=== PATIENT | female | born 1970 | race Caucasian/White ===

== ENCOUNTER 2022-03-24 08:30 | Observation (INO) | payer OTHER, SELFPAY ==
[2022-03-24] VITALS (11 sets, daily range): BP systolic 97–177; BP diastolic 48–90; PULSE 64–77; RESP 14–21; TEMP 36.7–37.1; O2SAT 98–100; BMI 34.8
--- NOTE | 2022-03-24 | ECHO_ITS ---
Patient Info Name: Lisseth Yuonger Age: 51 years : 1970 Gender: Female Ht: 64 in Wt: 215 lbs BSA: 2.14 m2 BP: 144 / 86 mmHg Technical Quality: Good Exam Date: 03/24/2022 2:00 PM Exam Location: [facility] Pulmonary Patient Status: Outpatient Admit Date: 03/24/2022 Staff Ordering Physician: Carl Quinteros DO Track Welder: Allan Wright RDCS, RT Attending Provider: Nicole Barfield MD Referring Physician: Aldair CRAIN; Exam Type: CA echo doppler color flow Study Info Indications R07.9 - Chest pain, unspecified Complete two-dimensional, color flow and Doppler transthoracic echocardiogram is performed. Strain analysis performed. Summary 1. Complete two-dimensional, color flow and Doppler transthoracic echocardiogram is performed. 2. Left ventricular chamber dimension is normal. 3. Left ventricular systolic function is normal, estimated at 60-65%. 4. There is mildly increased left ventricular wall thickness. 5. The left ventricular diastolic function is abnormal. 6. E/e' 10 is mildly elevated. 7. There is trace mitral valve regurgitation. 8. There is trace tricuspid valve regurgitation. 9. No pulmonary hypertension, estimated pulmonary arterial systolic pressure is 20 mmHg. Left Ventricle E/e' 10 is mildly elevated. Left ventricular chamber dimension is normal. Left ventricular systolic function is normal, estimated at 60-65%. There is mildly increased left ventricular wall thickness. The left ventricular diastolic function is abnormal. Right Ventricle Right ventricular systolic function is normal and with normal TAPSE 2.1 cm. Right ventricular chamber dimension is normal. Left Atria Left atrial chamber dimension is normal. Right Atria Right atrial chamber dimension is normal. Aortic Valve The aortic valve is trileaflet. There is no aortic valve stenosis. There is no aortic valve regurgitation. Pulmonic Valve There is no pulmonic regurgitation. Mitral Valve There is no mitral valve stenosis. There is trace mitral valve regurgitation. Tricuspid Valve There is trace tricuspid valve regurgitation. No pulmonary hypertension, estimated pulmonary arterial systolic pressure is 20 mmHg. Pericardium/Pleural There is no pericardial effusion. Inferior Vena Cava Normal inferior vena cava with >50% collapse upon inspiration consistent with normal right atrial pressure, 5 mmHg. Aorta The aortic root size at the sinus of Valsalva is normal. Left Ventricular Outflow Tract Name Value Normal LVOT 2D LVOT Diameter 2.0 cm LVOT Doppler LVOT Peak Gradient 2 mmHg LVOT Mean Gradient 1 mmHg LVOT VTI 16 cm LVOT VTI/AV VTI Ratio 0.8 LVOT Stroke Volume 51 ml LVOT CO 3.4 l/min LVOT CI 1.6 l/min/m2 Mitral Valve Name Value Normal
--- NOTE | ~2022-03-24 | XR_ITS ---
EXAMINATION: XR chest 2V DATE: 03/24/2022 08:57 INDICATION: Chest tightness TECHNIQUE: PA and lateral views of the chest are obtained. COMPARISON: None available FINDINGS: The lungs are free of acute opacities. There is no pleural effusion or pneumothorax. The ca rdiomediastinal silhouette is normal. There is mild thoracic spondylosis. Surgical clips in the right upper quadrant are likely from prior cholecystectomy. IMPRESSION: 1. No acute cardiopulmonary abnormality. Reviewed, dictated and finalized at location A.
--- NOTE | ~2022-03-24 | MR_ITS ---
EXAMINATION: MR brain/brain stem wo con DATE: 03/25/2022 10:11 INDICATION: Slurred speech and confusion TECHNIQUE: Magnetic resonance imaging (MRI) of the brain and brainstem was performed without intraven ous contrast. Sequences included sagittal and axial T1-weighted SE, axial diffusion-weighted FS SE, a xial T2*-weighted GRE, axial T2-weighted FLAIR, and axial T2-weighted FSE. Apparent diffusion coeffic ient (ADC) maps were created. COMPARISON: None. FINDINGS: There are no areas of restricted diffusion to suggest acute infarction. No intracranial hemorrhage or abnormal intracranial mass lesion. There are no intraparenchymal signal abnormalities seen on the ot her pulse sequences. The ventricles are symmetric and normal in size. There are no abnormal extra-axi al fluid collections. Flow voids are seen in the cerebral arteries on the T2-weighted sequences consi stent with their expected patency. Left vertebral artery is dominant. Changes of bilateral intraocula r lens replacement. Mild mucosal thickening in the bilateral ethmoid and maxillary sinuses. IMPRESSION: 1. Normal brain. No acute intracranial process. Reviewed, dictated and finalized at location A.
--- NOTE | ~2022-03-24 | NM_ITS ---
EXAMINATION: NM segundo stress w perfusion DATE: 03/25/2022 11:58 INDICATION: Chest pain TECHNIQUE: Rest images were obtained following intravenous administration of 10 mCi Tc99m tetrofosmin (Myoview). The patient was infused intravenously with Lexiscan (Regadenoson). Then, 32.3 mCi Tc99m t etrofosmin (Myoview) was administered intravenously, and stress images were obtained. Data was recons tructed into short axis and horizontal and vertical long axis SPECT images. Gated SPECT images were a lso obtained. COMPARISON: None. FINDINGS: Small mild reversible perfusion defect at the anteroapical segment and small anterior porti on of the immediately adjacent anterior septal segment consistent with ischemia. No nonreversible inf arct. There is normal left ventricular chamber size, wall motion and ejection fraction. Left ventri cular ejection fraction measures >70%. IMPRESSION: 1. Small region of mild reversible ischemia at the anteroapical portion of the immediately adjacent a pical septal segments. 2. Left ventricular ejection fraction measuring >70%. Reviewed, dictated and finalized at location A. IMPRESSION: 1. Small region of mild reversible ischemia at the anteroapical portion of the immediately adjacent apical septal segments. 2. Left ventricular ejection fraction measuring >70%.
--- NOTE | ~2022-03-24 | US_ITS ---
EXAMINATION: US carotid duplex BI DATE: 03/25/2022 09:58 INDICATION: Slurred speech and confusion. TECHNIQUE: Grayscale, color Doppler, and pulsed Doppler images of the cervical carotid arteries were obtained. The degree of vessel stenosis is placed in one of the following categories: normal, <50%, 5 0-69%, >=70% but less than near-occlusion, near-occlusion, or total occlusion. Note that percent sten osis relative to normal distal artery lumen diameter is indirectly measured from velocity measurement s as described by Abhilash, et al. Radiology 2003; 229:340-346. COMPARISON: None. FINDINGS: RIGHT: The right common carotid artery (CCA) peak systolic velocity (PSV) is 70 cm/s. The right internal car otid artery (ICA) PSV is 126 cm/s. The right ICA end-diastolic velocity (EDV) is 43 cm/s. The right I CA/CCA PSV ratio is 1.8. Grayscale and color Doppler images utilizing secondary Doppler criteria yiel d an estimate of <50% diameter reduction from plaque in the ICA. The external carotid artery (ECA) PS V is 130 cm/s. There is antegrade flow in the right vertebral artery. LEFT: The left CCA PSV is 90 cm/s. The left ICA PSV is 131 cm/s. The left ICA EDV is 36 cm/s. The left ICA/ CCA PSV ratio is 1.4. Grayscale and color Doppler images including secondary Doppler criteria yield a n estimate of <50% diameter reduction from plaque in the ICA. The ECA PSV is 105 cm/s. There is anteg rade flow in the left vertebral artery. IMPRESSION: 1. <50% stenosis in the right internal carotid artery. 2. <50% stenosis in the left internal carotid artery. Reviewed, dictated and finalized at location A.
--- NOTE | 2022-03-24 08:38 | ECG_ITS ---
Measurements Intervals [place] Rate: 75 P: 8 CT: 171 QRS: -30 QRSD: 82 T: 21 QT: 369 QTc: 414 Interpretive Statements SINUS RHYTHM LEFT AXIS DEVIATION CANNOT RULE OUT SEPTAL INFARCT, AGE INDETERMINATE BASELINE ARTIFACT- I, II, AVR ABNORMAL ECG Electronically Signed On 03-24-2022 8:43:38 CDT by Carl Quinteros D.O.
[2022-03-24] MEDS: ASPIRIN 81 MG CHEWABLE TABLET 324 MG PO (08:41)
[2022-03-24 09:21] LABS: Alanine Aminotransferase 23 U/L (4-35); Alkaline Phosphatase 103 U/L (38-126); Anion Gap 6 mmol/L (8-16); Aspartate Amino Transferase 25 U/L (14-36); Bilirubin,Total 0.2 mg/dL (0.2-1.3); Blood Urea Nitrogen 17 mg/dL (7-17); Calcium 8.8 mg/dL (8.4-10.2); Carbon Dioxide 27 mmol/L (22-30); Chloride 103 mmol/L (98-107); Estimated CRCL calculation 108 ml/min; Estimated Glomerular Filt Rate > 60; Glucose 238 mg/dL (65-110); Lipase 176 U/L (23-300); Sodium 136 mmol/L (137-145)
[2022-03-24 09:22] LABS: Basophils Absolute Auto 0.1 K/mm3 (0.0-0.1); Basophils Percent Auto 0.8 % (0.2-1.2); Eosinophils Absolute Auto 0.2 K/mm3 (0-0.3); Eosinophils Percent Auto 2.3 % (0-4.4); Hematocrit 36.2 % (37.0-47.0); Hemoglobin 11.7 g/dL (12.0-15.0); Immature Granulocyte Absolute 0.03 K/mm3 (0.00-0.031); Immature Granulocyte Percent A 0.5 % (0-0.5); Lymphocytes Absolute Auto 2.36 K/mm3 (0.9-3.2); Lymphocytes Percent Auto 36.3 % (18.3-44.2); Mean Corpuscular HGB Conc 32.3 g/dl (32-36); Mean Corpuscular Hemoglobin 28.1 pg (26-34); Mean Platelet Volume 9.1 fl (7.4-10.4); Monocytes Absolute Auto 0.4 K/mm3 (0.1-0.6); Monocytes Percent Auto 5.8 % (2.6-8.5); Neutrophils Absolute Auto 3.5 K/mm3 (1.3-6.7); Neutrophils Percent Auto 54.3 % (45.5-73.1); Platelet Count Result 251 k/mm3 (150-375); Prothrombin Time 13.2 Seconds (11.1-14.7); Red Blood Count 4.16 M/mm3 (4.2-5.4); Red Cell Distribution Width 12.4 % (11.5-14.5); White Blood Count 6.5 K/mm3 (4.5-10.0)
[2022-03-24 09:23] LABS: Partial Thromboplastin Time 28.1 SECONDS (22.3-36.8)
[2022-03-24 09:32] LABS: Troponin I < 0.012 ng/mL (0.000-0.034)
--- NOTE | 2022-03-24 09:55 | ED.CHESTPAIN ---
HPI - Chest Pain General Chief Complaint: Chest Pain Stated Complaint: chest tightness Time Seen by Provider: 03/24/22 08:45 Source: patient Mode of arrival: ambulatory Limitations: no limitations History of Present Illness HPI narrative: 51 years old white female presents with chest pain, heaviness across the chest started this morning while standing at work. No radiation, no shortness of breath, no fever or chills. Patient reports some neck pain started 1 week ago worse with certain movement, better if she remaining still. No throat. History of diabetes, hypertension, upper lipidemia, hypothyroidism, no smoking, negative family history of coronary artery disease. Related Data Allergies Allergy/AdvReac Type Severity Reaction Status Date / Time No Known Allergies Allergy Unknown Verified 03/24/22 08:38 Review of Systems Review of Systems: All systems reviewed & are unremarkable except as noted in HPI and below Exam Narrative: General appearance: Well-developed, well-nourished Skin: Normal color Head: Normocephalic, nontraumatic Eyes: Clear conjunctiva ENT: Oropharynx normal, ears normal, nose normal Neck: Supple, nontender Chest and respiratory: Airway patent, no respiratory distress, no accessory muscle use Heart: Regular rate/rhythm Abdomen: Soft, nontender, no organomegaly, quiet bowel sounds Vascular: Normal peripheral pulses, normal capillary refill. 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 Consultations Consultation #1: Dr. Quinteros Date: 03/24/22 Time: 10:29 Vital Signs Vital signs: Vital Signs Temperature 37.1 C 03/24/22 08:31 Pulse Rate 73 03/24/22 08:31 Respiratory Rate 15 03/24/22 08:31 Blood Pressure 177/90 H 03/24/22 08:31 Pulse Oximetry 100 03/24/22 08:31 Temperature 37.1 C 03/24/22 08:31 Pulse Rate 77 03/24/22 08:45 Respiratory Rate 15 03/24/22 08:31 Blood Pressure 177/90 H 03/24/22 08:31 Pulse Oximetry 100 03/24/22 08:31 MDM - Chest Pain Lab Data Result diagrams: 03/24/22 09:04 03/24/22 09:04 Labs: Lab Results 03/24/22 03/24/22 03/24/22 Range/Units 09:04 09:04 09:04 WBC 6.5 (4.5-10.0) K/mm3 RBC 4.16 L (4.2-5.4) M/mm3 Hgb 11.7 L (12.0-15.0) g/dL Hct 36.2 L (37.0-47.0) % MCV 87.0 (80-100) fl MCH 28.1 (26-34) pg MCHC 32.3 (32-36) g/dl RDW 12.4 (11.5-14.5) % Plt Count 251 (150-375) k/mm3 MPV 9.1 (7.4-10.4) fl Immature Gran % (Auto) 0.5 (0-0.5) % Neut % (Auto) 54.3 (45.5-73.1) % Lymph % (Auto) 36.3 (18.3-44.2) % Ballard % (Auto) 5.8 (2.6-8.5) % Eos % (Auto) 2.3 (0-4.4) % Baso % (Auto) 0.8 (0.2-1.2) % Lymph # (Auto) 2.36 (0.9-3.2) K/mm3 Ballard # (Auto) 0.4 (0.1-0.6) K/mm3 Eos # (Auto) 0.2 (0-0.3) K/mm3 Baso # (Auto) 0.1 (0.0-0.1) K/mm3 Abs Immat Gran (auto) 0.03 (0.00-0.031) K/mm3 Absolute Neuts (auto) 3.5 (1.3-6.7) K/mm3 Absolute Nucleated RBC 0.0 (0.0-0.012) K/mm3 Nucleated RBC % 0.0 (0.0-0.2) % PT 13.2 (11.1-14.7) Seconds INR 1.0 APTT 28.1 (22.3-36.8) SECONDS Sodium 136 L (137-145) mmol/L Potassium 4.0 (3.4-5.0) mmol/L Chloride 103 (98-107) mmol/L Carbon Dioxide 27 (22-30) mmol/L Anion Gap 6 L (8-16) mmol/L BUN 17 (7-17) mg/dL Creatinine 0.60 L (0.7-1.0) mg/dL Estim Creat Clear Calc 108 ml/min Estimated GFR > 60 (59 - ) Glucose 238 H (65-110) mg/dL Calcium
[2022-03-24] MEDS: ONDANSETRON INJ 4 MG/2 ML VIAL IV PUSH (10:33)
[2022-03-24] MEDS: MORPHINE SULFATE (*CRX) 4 MG/ML INJ IV PUSH (10:34)
[2022-03-24] MEDS: METOPROLOL TARTRATE 50 MG TAB 25 MG PO (10:35)
--- NOTE | 2022-03-24 11:37 | PM.CNCAR ---
Assessment and Plan Assessment and plan (1) Chest pain: Qualifiers: Chest pain type: unspecified Qualified Code(s): R07.9 - Chest pain, unspecified Code(s): R07.9 - Chest pain, unspecified Status: Acute Assessment and Plan: Probably cervical radiculopathy. Serial troponin. If unremarkable, obtain lexiscan myoview in AM. Obtain echo. (2) Hypertension: Code(s): I10 - Essential (primary) hypertension Status: Acute Assessment and Plan: Stable. (3) Dyslipidemia: Code(s): E78.5 - Hyperlipidemia, unspecified Status: Acute Assessment and Plan: Stable. (4) Diabetes: Code(s): E11.9 - Type 2 diabetes mellitus without complications Status: Acute Assessment and Plan: Manage by PCP. History of Present Illness History of Present Illness Consult date/time: 03/24/22 11:37 Reason for consult: CP. 51 yr old woman presents to ER with chest pain. She has a history of DM, hypertension, dyslpidemia. Reports that 3 days ago she woke up with neck pain and it has persisted. This morning while at work standing operating a [employer] she noted chest pressure across her chest radiating up to her head. She has palpable tenderness to neck region. Normally she can walk 2 blocks without any problems. Denies orthopnea, PND, edema, dizziness, palpitations. CXR: normal. EKG: Sinus rhythm, cannot r/o septal infarct. Hb 11.7, BS 238, Sodium 136, Trop 0. Reason For Visit: Chest pain/cervicalgia Review of Systems Review of Systems: All systems reviewed & are unremarkable except as noted in HPI and below Constitutional: Constitutional: Reports as per HPI, Denies chills and Denies fever(s) Cardiovascular: Cardiovascular: Reports as per HPI, Reports chest pain, Denies irregular heart rhythm, Denies leg edema and Denies lightheadedness Respiratory: Respiratory: Reports as per HPI and Denies dyspnea Gastrointestinal: Gastrointestinal: Reports as per HPI and Denies abdominal pain Genitourinary: Genitourinary: Reports as per HPI and Denies dysuria Musculoskeletal: Musculoskeletal: Reports as per HPI and Reports neck pain Neurologic: Reports as per HPI, Denies dizziness and Denies syncope [facility] Family History Family History (Updated 03/24/22 @ 12:15 by Jenifer Oscar RN) Mother Chronic obstructive pulmonary disease Other Cerebrovascular accident Social History Social History Smoking status: Never smoker Alcohol intake: never Substance use: former Substance use type: marijuana Other substance usage details: edibles Spiritual care concerns: No Meds Home Medications and Allergies Allergies Allergy/AdvReac Type Severity Reaction Status Date / Time No Known Allergies Allergy Unknown Verified 03/24/22 08:38 Vital Signs Vital Signs - 24 hr 03/24/22 08:31 03/24/22 08:45 03/24/22 10:35 Temperature 98.8 F Pulse Rate 73 77 70 Respiratory Rate 15 Blood Pressure 177/90 H Pulse Oximetry 100 03/24/22 10:48 Temperature Pulse Rate 66 Respiratory Rate 21 H Blood Pressure 144/86 H Pulse Oximetry 100 Exam Const: General: cooperative, healthy appearing and comfortable Resp: Auscultation: clear to auscultation bilaterally, no crackles, no rales, no rhonchi and no wheezes Cardio: Jugular venous distension: no JVD Rate: regular rate Rhythm: regular rhythm Heart sounds: no murmurs Peripheral pulses: dorsalis pedis present GI: GI Palp: No abdominal tenderness and Yes Soft to palpation Neuro: General: oriented to person, oriented to place and oriented to time Extrem: Right lower extremity: no edema Left lower extremity: no edema Results Labs and Meds Result diagrams: 03/24/22 09:04 03/24/22 09:04 Lab results: Cardiac Enzymes 03/24/22 Range/Units 09:04 AST 25 (14-36) U/L Troponin I < 0.012 (0.000-0.034) ng/mL
--- NOTE | 2022-03-24 11:56 | ADMGEN ---
This patient, Lisseth Younger, was admitted to IMU Room 206-01. Patient/family oriented to hospital policies and general routines including ID bracelet, bed and alarms, visiting hours, pain management, procedures, bathroom and other care routines, personal items, smoking policy, room service/diet, and visiting hours. Information on how to activate the Rapid Response Team has been discussed. Patient/Family are encouraged to report perceived risks to care and to ask questions if they do not understand what they are told or what they should do.
[2022-03-24 12:59] LABS: Glucose Point of Care 133 mg/dl (65-105)
--- NOTE | 2022-03-24 15:30 | PM.IMHP ---
H&P: HPI History of Present Illness Date/Time: 03/24/22 15:30 Chief Complaint: Chest tightness. Narrative: This is a pleasant 51-year-old female with hypertension, hyperlipidemia, diabetes, and hypothyroidism who presented to the emergency department via EMS from work for evaluation of chest tightness. Tuesday she awoke from sleep with stiffness on the right side of her neck and each day it has become worse and is now radiating to the shoulder, scapula, and even to the right upper anterior chest. It seems to be musculoskeletal in etiology as it is worse with movement and palpation. 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 This caused her to become anxious and when she attempted to tell her coworkers she noticed that her speech was mildly slurred and she was a bit confused with a slow thought process. Blood pressure at that time was reportedly 165/108 and she was brought to ER for evaluation where she has so far had negative troponins. She does admit to high stress recently and she has never had similar symptoms in the past. She has no known history of cardiac disease. With further questioning regarding the neurologic symptoms, she has never had similar symptoms in the past though she does report having experienced diplopia on several occasions. She denies vertigo, current visual changes, focal weakness, paresthesias, facial droop, current slurred speech, dysphagia, exertional chest pain, pleuritic pain, shortness of breath, vomiting, and diaphoresis. Review of Systems Review of Systems: Twelve systems were reviewed. No recent cold or flu symptoms. She endorses chronic polydipsia and polyuria. She admits that she does not check her glucose often and she does not believe that she has symptoms when she is hyperglycemic. For instance just this morning her glucose was 433 and she seemed [place] fully on aware. Except as documented, all other systems were reviewed and are negative. [facility] Past Medical History Medical History (Updated 03/24/22 @ 22:31 by Krista Dubon PA-C) Asthma Depression Hypercholesterolemia Hypertension Hypothyroidism Methicillin resistant Staphylococcus aureus infection (2007) Type 2 diabetes mellitus Surgical History Surgical History (Updated 03/24/22 @ 15:35 by Krista G. Gerling, PA-C) History of 2 sections History of arthroscopy of left knee History of bilateral cataract extraction History of cholecystectomy History of shoulder surgery History of tubal ligation Family History Family History Mother Chronic obstructive pulmonary disease Grandparent Diabetes mellitus Cerebrovascular accident Emphysema lung Sibling Diabetes mellitus Social History Social History (Updated 03/24/22 @ 22:29 by Krista Dubon PA-C) Social History: Surrogate decision maker: Damon Younger, karin. Code status: Full code. Smoking status: Never smoker Alcohol intake: never Substance use: former Substance use type: marijuana Other substance usage details: Edibles Additional living arrangements comments: The patient lives in [place] with I believe 4 children. 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 Spiritual care concerns: No Meds Home Medications and Allergies Home Medications Medication Instructions Recorded Confirmed Type cholecalciferol (vitamin D3) 25 mcg PO DAILY 03/24/22 03/24/22 History [Vitamin D3] insulin glargine-yfgn 35 unit SUBCUT HS 03/24/22 03/24/22 History [Semglee(insulin glarg-yfgn)Pen] lisinopril 20 mg PO DAILY 03/24/22 03/24/22 History rosuvastatin 20 mg PO QAM 03/24/22 03/24/22 History sitagliptin [Januvia] 50 mg PO QAM 03/24/22 03/24/22 History Allergies Allergy/AdvReac Type
[2022-03-24 16:00] LABS: Troponin I < 0.012 ng/mL (0.000-0.034)
[2022-03-24 17:09] LABS: Glucose Point of Care 225 mg/dl (65-105)
[2022-03-24] MEDS: INSULIN ASPART (*BKC) 100 UNITS/ML SUB-Q (17:17)
[2022-03-24 17:21] LABS: Hemoglobin A1C 13.4 % (<5.7)
[2022-03-24 18:32] LABS: Troponin I < 0.012 ng/mL (0.000-0.034)
[2022-03-24 20:21] LABS: Glucose Point of Care 249 mg/dl (65-105)
[2022-03-24] MEDS: INSULIN GLARGINE (*BKC) 100 UNITS/ML 35 UNITS SUB-Q (20:26)
[2022-03-24] MEDS: ACETAMINOPHEN 325 MG TABLET 650 MG PO (20:28)
[2022-03-25] VITALS (11 sets, daily range): BP systolic 112–125; BP diastolic 66–88; PULSE 64–98; RESP 14–18; TEMP 36.4–37.1; O2SAT 95–100
[2022-03-25 05:37] LABS: Hematocrit 35.7 % (37.0-47.0); Hemoglobin 11.8 g/dL (12.0-15.0); Mean Corpuscular HGB Conc 33.1 g/dl (32-36); Mean Corpuscular Hemoglobin 28.2 pg (26-34); Mean Corpuscular Volume 85.4 fl (80-100); Mean Platelet Volume 9.1 fl (7.4-10.4); Platelet Count Result 246 k/mm3 (150-375); Red Blood Count 4.18 M/mm3 (4.2-5.4); Red Cell Distribution Width 12.3 % (11.5-14.5); White Blood Count 7.1 K/mm3 (4.5-10.0)
[2022-03-25 05:53] LABS: Anion Gap 4 mmol/L (8-16); Blood Urea Nitrogen 18 mg/dL (7-17); Calcium 8.5 mg/dL (8.4-10.2); Carbon Dioxide 29 mmol/L (22-30); Chloride 103 mmol/L (98-107); Estimated CRCL calculation 80 ml/min; Estimated Glomerular Filt Rate > 60; Glucose 137 mg/dL (65-110); Magnesium 1.8 mg/dL (1.6-2.3); Sodium 136 mmol/L (137-145)
[2022-03-25 07:56] LABS: Glucose Point of Care 131 mg/dl (65-105)
[2022-03-25] MEDS: ROSUVASTATIN 10 MG TABLET 20 MG PO (08:17)
[2022-03-25] MEDS: lisinopriL 20 MG TABLET PO (08:18)
[2022-03-25] MEDS: CHOLECALCIFEROL 1,000 UNITS TABLET 1000 UNITS PO (08:18)
[2022-03-25] MEDS: ASPIRIN 81 MG CHEWABLE TABLET PO (08:18)
[2022-03-25] MEDS: ENOXAPARIN 40 MG/0.4 ML SYRINGE SUB-Q (08:18)
--- NOTE | 2022-03-25 08:20 | PM.PNCARD ---
Progress Note: A&P Assessment and Plan (1) Chest pain: Qualifiers: Chest pain type: unspecified Qualified Code(s): R07.9 - Chest pain, unspecified Code(s): R07.9 - Chest pain, unspecified Status: Acute Assessment and Plan: Probably cervical radiculopathy. Echo on 03/24/22 EF 60-65%, mild LVH, diastolic dysfunction (E/e' 10), trace MR/TR. MN r/o by serial troponin and EKG. Obtain Elias Borges Urzedaan myoview today. If negative, will sign off. (2) Hypertension: Code(s): I10 - Essential (primary) hypertension Status: Acute Assessment and Plan: Stable. (3) Dyslipidemia: Code(s): E78.5 - Hyperlipidemia, unspecified Status: Acute Assessment and Plan: Stable. (4) Diabetes: Code(s): E11.9 - Type 2 diabetes mellitus without complications Status: Acute Assessment and Plan: Manage by PCP. Subjective Date/time seen: 03/25/22 08:20 Reports soreness in neck to upper chest area. No sob. Exam Const: General: cooperative, healthy appearing and comfortable Resp: Auscultation: clear to auscultation bilaterally, no crackles, no rales, no rhonchi and no wheezes Cardio: Jugular venous distension: no JVD Rate: regular rate Rhythm: regular rhythm Heart sounds: no murmurs Peripheral pulses: dorsalis pedis present GI: GI Palp: No abdominal tenderness and Yes Soft to palpation Neuro: General: oriented to person, oriented to place and oriented to time Extrem: Right lower extremity: no edema Left lower extremity: no edema Objective Data Vital Signs Vital Signs: Vital Signs - 24 hr 03/24/22 08:31 03/24/22 08:45 03/24/22 10:35 Temperature 98.8 F Pulse Rate 73 77 70 Respiratory Rate 15 Blood Pressure 177/90 H Pulse Oximetry 100 03/24/22 10:48 03/24/22 12:00 03/24/22 14:00 Temperature 98.2 F Pulse Rate 66 66 65 Respiratory Rate 21 H 16 Blood Pressure 144/86 H 136/67 Pulse Oximetry 100 100 03/24/22 16:00 03/24/22 18:00 03/24/22 20:00 Temperature 98.6 F 98.1 F Pulse Rate 70 72 71 Respiratory Rate 18 16 Blood Pressure 146/84 H 134/73 Pulse Oximetry 100 99 03/24/22 21:07 03/24/22 23:50 03/25/22 00:00 Temperature 98.2 F Pulse Rate 75 68 73 Respiratory Rate 14 14 Blood Pressure 97/48 L Pulse Oximetry 98 98 03/25/22 02:00 03/25/22 04:00 03/25/22 05:56 Temperature 97.5 F L Pulse Rate 64 76 73 Respiratory Rate 16 Blood Pressure 112/71 Pulse Oximetry 95 Intake/Output Intake/Output: Intake & Output 03/22/22 03/23/22 03/24/22 03/25/22 23:59 23:59 23:59 23:59 Intake Total 2360 1100 Output Total 3600 2300 Balance -1240 -1200 Meds/Results Medications: Active Medications Generic Name Dose Route Start Last Admin Trade Name Freq PRN Reason Stop Dose Admin Acetaminophen 650 mg 03/24/22 10:16 03/24/22 20:28 Acetaminophen 325 Mg Tablet PO 650 mg Q4H PRN Administration Mild Pain (1-3) or Fever Aspirin 81 mg 03/25/22 08:00 Aspirin 81 Mg Chewable Tablet PO DAILY@0800 JACOB Dextrose 12.5 gm 03/24/22 15:40 Dextrose 50% 25 Gm/50 Ml Syringe IV PUSH PRN PRN Hypoglycemia Protocol Enoxaparin Sodium 40 mg 03/25/22 09:00 Enoxaparin 40 Mg/0.4 Ml Syringe SUB-Q DAILY JACOB Glucagon 1 mg 03/24/22 15:40 Glucagon For Inj 1 Mg Vial IM PRN PRN Hypoglycemia Protocol Glucose 15 gm 03/24/22 15:40 Glucose Oral Gel 15 Gm Of Glucse In 37.5 Gm Tube PO PRN PRN Hypoglycemia Protocol Dextrose 1,000 mls @ 100 mls/hr 03/24/22 15:40 Dextrose 5% 1,000 Ml IVPB PRN PRN Hypoglycemia Protocol Insulin Aspart 3 - 6 units 03/24/22 17:00 03/24/22 17:17 Insulin Aspart (*Bkc) 100 Units/Ml SUB-Q 3 units TIDWM JACOB Administration Protocol Insulin Glargine 35 units 03/24/22 21:00 03/24/22 20:26 Insulin Glargine (*Bkc) 100 Units/Ml SUB-Q 35 units HS [facility] Administration Lisinop
--- NOTE | 2022-03-25 08:58 | PC.NURSE ---
Patient going to MRI, then Ultra sound, and then Nuclear Med. Transported by David. Nurse doesn't have to go along per Dr. Britton.
--- NOTE | 2022-03-25 09:00 | EST_ITS ---
Patient Info Name: Lisseth Younger Age: 51 years : 1970 Gender: Female Ht: 64 in Wt: 203 lbs BSA: 2.08 m2 HR: 73 bpm BP: 115 / 74 mmHg Heart Rhythm: Sinus Rhythm Exam Date: 03/25/2022 10:29 AM Exam Location: [facility] Stress Patient Status: Outpatient Admit Date: 03/24/2022 Staff Ordering Physician: Carl Quinteros DO Attending Provider: Nicole Barfield MD Exercise Technologist: Erica Govea CT Exercise Physician: Carl Quinteros DO Exam Type: CA stress segundo w NM Study Info Indications R07.9 - Chest pain, unspecified A regadenoson stress test was performed. Summary 1. 1. Negative lexiscan stress test for ischemic ST changes by ECG criteria. 2. 2. Stable hemodynamics throughout the test. 3. 3. Nuclear scan to follow and will be reported separately. Please correlate with it. 4. 4. Patient informed of the above results. Protocol: Lexiscan Stress ECG Details Stage: REST Duration (min): 0 min : 48 sec HR (bpm): 71 SBP (mmHg): 115 DBP (mmHg): 74 Stage: REST Duration (min): 17 min : 44 sec HR (bpm): 78 SBP (mmHg): 115 DBP (mmHg): 74 Stage: STAGE 1 Duration (min): 1 min : 0 sec HR (bpm): 95 SBP (mmHg): 132 DBP (mmHg): 77 Stage: RECOVERY Duration (min): 1 min : 0 sec HR (bpm): 91 SBP (mmHg): 132 DBP (mmHg): 77 Stage: RECOVERY Duration (min): 2 min : 0 sec HR (bpm): 89 SBP (mmHg): 132 DBP (mmHg): 77 Stage: RECOVERY Duration (min): 3 min : 0 sec HR (bpm): 89 SBP (mmHg): 124 DBP (mmHg): 73 Stage: RECOVERY Duration (min): 4 min : 0 sec HR (bpm): 86 SBP (mmHg): 124 DBP (mmHg): 73 Stage: RECOVERY Duration (min): 4 min : 45 sec HR (bpm): 87 SBP (mmHg): 126 DBP (mmHg): 72 Rest HR: 78 bpm Peak HR: 97 bpm Rest Sys BP: 115 mmHg Peak Sys BP: 132 mmHg Max Pred HR: 170 bpm % Max Pred HR: 57 % Target HR: 145 bpm Max RPP: 12,804 bpm*mmHg Termination Reason: Completed protocol Cardiac Symptoms: Shortness of breath, Vague headache Total Time: 1 min : 0 sec Rest Aguero BP: 74 mmHg Peak Aguero BP: 77 mmHg Total Dose: 0.4 mg Resting ECG Sinus rhythm, delayed precordial R/S transition. Stress ECG No ST changes. Arrhythmias None. Report Signatures
[2022-03-25] MEDS: ACETAMINOPHEN 325 MG TABLET 650 MG PO (11:43)
[2022-03-25 12:26] LABS: Glucose Point of Care 161 mg/dl (65-105)
--- NOTE | 2022-03-25 15:10 | PM.IMPN ---
Progress Note: A&P Assessment and Plan (1) Chest pain: Qualifiers: Chest pain type: unspecified Qualified Code(s): R07.9 - Chest pain, unspecified Code(s): R07.9 - Chest pain, unspecified Status: Acute Assessment and Plan: Patient presents with chest pain. Trop negative x 3. EKG showing NSR, left axis and possible old septal GA. Echo showing EF 60-65% and diastolic dysfunction. Cardiology following. Lexiscan stress test showing normal EKG findings but nuclear images showing small region of mild reversible ischemia at the anteroapical portion of the immediately adjacent apical septal segments. Continue ASA, statin. Will discuss with cardiology about heart cath tomorrow. (2) Neurological symptoms: Code(s): R29.90 - Unspecified symptoms and signs involving the nervous system Status: Acute Assessment and Plan: She reports transient symptoms with the chest pain. Malignant rhythm? Nothing on the monitor. Echo as mentioned above. Carotid ultrasound showing <50% stenosis bilaterally. Brain MRI showing no acute process. Continue tele. Continue ASA, statin. (3) Type 2 diabetes mellitus: Code(s): E11.9 - Type 2 diabetes mellitus without complications Status: Acute Assessment and Plan: A1c 13.4. The patient's blood glucose was reviewed on 03/25 Glucose remains poorly controlled. Continue AccuCheks covering with sliding scale. Hypoglycemia protocol available as needed. Continue current medications. (4) Hypertension: Code(s): I10 - Essential (primary) hypertension Status: Acute Assessment and Plan: Blood pressures was 177/90 in the ER but well controlled since. Continue lisinopril. Continue to follow (5) Dyslipidemia: Code(s): E78.5 - Hyperlipidemia, unspecified Status: Acute Assessment and Plan: LFTs normal. Continue rosuvastatin (6) Hypothyroidism: Code(s): E03.9 - Hypothyroidism, unspecified Status: Acute Assessment and Plan: TSH normal Not currently on medication. Subjective Date/time seen: 03/25/22 15:10 Interval history: 51yo female with DM, HTN and HLD here for chest pain and slurred speech. She states the slurred speech lasted 'just a couple of words'. She was also off balance but again this was brief. Never had these type of symptoms before. She is back from her stress test and noted a 'heavy' feeling in her chest with the test but only lasted a few seconds. She feels well today. Exam Narrative: AF 98.8 125/87 68 18 100% ra Gen - NARD sitting at the side of the bed Chest - CTA bilaterally, nml RR CV - RRR S1/S2, Tele showing no significant dysrhythmias Abd - soft, NT/ND, +BS Ext - no pedal edema. 2+ PT pulses bilaterally Psych - nnl mood and affect Skin - warm and dry Objective Data Vital Signs Vital Signs: Vital Signs - 24 hr 03/24/22 16:00 03/24/22 18:00 03/24/22 20:00 Temperature 98.6 F 98.1 F Pulse Rate 70 72 71 Respiratory Rate 18 16 Blood Pressure 146/84 H 134/73 Pulse Oximetry 100 99 03/24/22 21:07 03/24/22 23:50 03/25/22 00:00 Temperature 98.2 F Pulse Rate 75 68 73 Respiratory Rate 14 14 Blood Pressure 97/48 L Pulse Oximetry 98 98 03/25/22 02:00 03/25/22 04:00 03/25/22 05:56 Temperature 97.5 F L Pulse Rate 64 76 73 Respiratory Rate 16 Blood Pressure 112/71 Pulse Oximetry 95 03/25/22 08:00 03/25/22 12:00 03/25/22 14:00 Temperature 97.7 F 98.8 F Pulse Rate 73 86 68 Respiratory Rate 16 18 Blood Pressure 116/88 125/87 Pulse Oximetry 100 100 Intake/Output Intake/Output: Intake & Output 03/22/22 03/23/22 03/24/22 03/25/22 23:59 23:59 23:59 23:59 Intake Total 2360 1100 Output Total 3600 2650 Balance -1240 -1550 Meds/Results Medications: Active Medications Generic Name Dose Route Start Last Admin Trade Name Freq PRN Reason Stop Dose Admin Acetaminophen 650 mg 03/24/22 10:16
[2022-03-25 16:13] LABS: Glucose Point of Care 232 mg/dl (65-105)
[2022-03-25] MEDS: INSULIN ASPART (*BKC) 100 UNITS/ML SUB-Q (18:02)
[2022-03-25] MEDS: INSULIN GLARGINE (*BKC) 100 UNITS/ML 35 UNITS SUB-Q (20:26)
[2022-03-25 20:41] LABS: Glucose Point of Care 192 mg/dl (65-105)
[2022-03-26] VITALS (18 sets, daily range): BP systolic 104–141; BP diastolic 65–89; PULSE 61–83; RESP 13–18; TEMP 36.4–37; O2SAT 92–100; BMI 34.7
--- NOTE | 2022-03-26 08:04 | PM.PNCARD ---
Progress Note: A&P Assessment and Plan (1) Chest pain: Qualifiers: Chest pain type: unspecified Qualified Code(s): R07.9 - Chest pain, unspecified Code(s): R07.9 - Chest pain, unspecified Status: Acute Assessment and Plan: Probably cervical radiculopathy and CAD. Echo on 03/24/22 EF 60-65%, mild LVH, diastolic dysfunction (E/e' 10), trace MR/TR. HI r/o by serial troponin and EKG. Obtain TeleDNA myoview today. I reviewed nuclear images and results interpreted by radiologist. Discuss results of abnormal nuclear stress test with patient. Advise risks/benefits/alternative treatment to left heart cath and she is agreeable for procedure. Notified HCG for it. Keep NPO. (2) Hypertension: Code(s): I10 - Essential (primary) hypertension Status: Acute Assessment and Plan: Stable. (3) Dyslipidemia: Code(s): E78.5 - Hyperlipidemia, unspecified Status: Acute Assessment and Plan: Stable. (4) Diabetes: Code(s): E11.9 - Type 2 diabetes mellitus without complications Status: Acute Assessment and Plan: Manage by PCP. Subjective Date/time seen: 03/26/22 08:04 Reports has neck pain with some radiation down to chest. No sob. Exam Const: General: cooperative, healthy appearing and comfortable Resp: Auscultation: clear to auscultation bilaterally, no crackles, no rales, no rhonchi and no wheezes Cardio: Jugular venous distension: no JVD Rate: regular rate Rhythm: regular rhythm Heart sounds: no murmurs Peripheral pulses: dorsalis pedis present GI: GI Palp: No abdominal tenderness and Yes Soft to palpation Neuro: General: oriented to person, oriented to place and oriented to time Extrem: Right lower extremity: no edema Left lower extremity: no edema Objective Data Vital Signs Vital Signs: Vital Signs - 24 hr 03/25/22 12:00 03/25/22 14:00 03/25/22 16:00 Temperature 98.8 F 97.7 F Pulse Rate 86 68 66 Respiratory Rate 18 18 Blood Pressure 125/87 123/66 Pulse Oximetry 100 100 03/25/22 18:00 03/25/22 20:00 03/25/22 22:12 Temperature 97.7 F Pulse Rate 83 79 71 Respiratory Rate 16 Blood Pressure 118/72 Pulse Oximetry 99 03/26/22 00:00 03/26/22 02:36 03/26/22 04:00 Temperature 97.7 F 98.3 F Pulse Rate 65 70 69 Respiratory Rate 16 16 Blood Pressure 113/67 104/69 Pulse Oximetry 100 98 03/26/22 06:08 Temperature Pulse Rate 70 Respiratory Rate Blood Pressure Pulse Oximetry Intake/Output Intake/Output: Intake & Output 03/23/22 03/24/22 03/25/22 03/26/22 23:59 23:59 23:59 23:59 Intake Total 2360 1940 950 Output Total 3600 3950 1900 [facility] -1240 -2009 -950 Meds/Results Medications: Active Medications Generic Name Dose Route Start Last Admin Trade Name Freq PRN Reason Stop Dose Admin Acetaminophen 650 mg 03/24/22 10:16 03/25/22 11:43 Acetaminophen 325 Mg Tablet PO 650 mg Q4H PRN Administration Mild Pain (1-3) or Fever Aspirin 81 mg 03/25/22 08:00 03/25/22 08:18 Aspirin 81 Mg Chewable Tablet PO 81 mg DAILY@0800 JACOB Administration Dextrose 12.5 gm 03/24/22 15:40 Dextrose 50% 25 Gm/50 Ml Syringe IV PUSH PRN PRN Hypoglycemia Protocol Enoxaparin Sodium 40 mg 03/25/22 09:00 03/25/22 08:18 Enoxaparin 40 Mg/0.4 Ml Syringe SUB-Q 40 mg DAILY JACOB Administration Glucagon 1 mg 03/24/22 15:40 Glucagon For Inj 1 Mg Vial IM PRN PRN Hypoglycemia Protocol Glucose 15 gm 03/24/22 15:40 Glucose Oral Gel 15 Gm Of Glucse In 37.5 Gm Tube PO PRN PRN Hypoglycemia Protocol Dextrose 1,000 mls @ 100 mls/hr 03/24/22 15:40 Dextrose 5% 1,000 Ml IVPB PRN PRN Hypoglycemia Protocol Insulin Aspart 3 - 6 units 03/24/22 17:00 03/25/22 18:02 Insulin Aspart (*Bkc) 100 Units/Ml SUB-Q 3 units TIDWM JACOB Administration Protocol Insulin Glargine 35 units 03/24/22 21:00 03/25
[2022-03-26 08:09] LABS: Glucose Point of Care 100 mg/dl (65-105)
--- NOTE | 2022-03-26 08:39 | WPDMODSED ---
Moderate Sedation Note-Pt Data Patient Data Diagnosis: Chest pain/abnormal nuclear stress test Present Complaint: Episode of chest pain prior to admission Procedure to be performed/Plan: Left heart catheterization Allergies Allergy/AdvReac Type Severity Reaction Status Date / Time No Known Allergies Allergy Unknown Verified 03/24/22 08:38 Home Medications Medication Instructions Recorded Confirmed Type cholecalciferol (vitamin D3) 25 mcg PO DAILY 03/24/22 03/24/22 History [Vitamin D3] insulin glargine-yfgn 35 unit SUBCUT HS 03/24/22 03/24/22 History [Semglee(insulin glarg-yfgn)Pen] lisinopril 20 mg PO DAILY 03/24/22 03/24/22 History rosuvastatin 20 mg PO QAM 03/24/22 03/24/22 History sitagliptin [Januvia] 50 mg PO QAM 03/24/22 03/24/22 History Current Medications: Active Medications Acetaminophen (Acetaminophen 325 Mg Tablet) 650 mg PO Q4H PRN PRN Reason: Mild Pain (1-3) or Fever Last Admin: 03/25/22 11:43 Dose: 650 mg Documented by: Aspirin (Aspirin 81 Mg Chewable Tablet) 81 mg PO DAILY@0800 [facility] Last Admin: 03/25/22 08:18 Dose: 81 mg Documented by: Dextrose (Dextrose 50% 25 Gm/50 Ml Syringe) 12.5 gm IV PUSH PRN PRN; Protocol PRN Reason: Hypoglycemia Enoxaparin Sodium (Enoxaparin 40 Mg/0.4 Ml Syringe) 40 mg SUB-Q DAILY [facility] Last Admin: 03/25/22 08:18 Dose: 40 mg Documented by: Glucagon (Glucagon For Inj 1 Mg Vial) 1 mg IM PRN PRN; Protocol PRN Reason: Hypoglycemia Glucose (Glucose Oral Gel 15 Gm Of Glucse In 37.5 Gm Tube) 15 gm PO PRN PRN; Protocol PRN Reason: Hypoglycemia Dextrose (Dextrose 5% 1,000 Ml) 1,000 mls @ 100 mls/hr IVPB PRN PRN; Protocol PRN Reason: Hypoglycemia Insulin Aspart (Insulin Aspart (*Bkc) 100 Units/Ml) 3 - 6 units SUB-Q TIDWM [facility]; Protocol Last Admin: 03/25/22 18:02 Dose: 3 units Documented by: Insulin Glargine (Insulin Glargine (*Bkc) 100 Units/Ml) 35 units SUB-Q HS [facility] Last Admin: 03/25/22 20:26 Dose: 35 units Documented by: Lisinopril (Lisinopril 20 Mg Tablet) 20 mg PO DAILY [facility] Last Admin: 03/25/22 08:18 Dose: 20 mg Documented by: Nitroglycerin (Nitroglycerin Sl 0.4 Mg Tablet) 0.4 mg SUBLINGUAL Q5MIN PRN PRN Reason: Chest Pain Perflutren Lipid Microsphere (Perflutren Lipid Microspheres 1.5 Ml Vial Diluted To 10 Ml Total Volume) 0 ml IV PUSH ONCE PRN; Protocol PRN Reason: adequate visualization Rosuvastatin Calcium (Rosuvastatin 10 Mg Tablet) 20 mg PO QAM [facility] Last Admin: 03/25/22 08:17 Dose: 20 mg Documented by: Sitagliptin Phosphate (Sitagliptin 50 Mg Tablet) 50 mg PO QAM [facility] Last Admin: 03/25/22 08:17 Dose: 50 mg Documented by: Vitamin D (Cholecalciferol 1,000 Units Tablet) 1,000 units PO DAILY [facility] Last Admin: 03/25/22 08:18 Dose: 1,000 units Documented by: Sedation/Anesthesia: No previous sedation/anesthesia problems (including family history). [facility] Past Medical History Medical History (Updated 03/24/22 @ 22:31 by Krista Dubon PA-C) Asthma Depression Hypercholesterolemia Hypertension Hypothyroidism Methicillin resistant Staphylococcus aureus infection (2007) Type 2 diabetes mellitus Surgical History Surgical History (Updated 03/24/22 @ 15:35 by Krista Dubon PA-C) History of 2 sections History of arthroscopy of left knee History of bilateral cataract extraction History of cholecystectomy History of shoulder surgery History of tubal ligation Family History Family History Mother Chronic obstructive pulmonary disease Grandparent Diabetes mellitus Cerebrovascular accident Emphysema lung Sibling Diabetes mellitus Social History Social History (Updated 03/24/22 @ 22:29 by Krista Dubon PA-C) Social History: Surrogate decision maker: Damon Younegr, karin. Code status: Full code. Smoking status: Never smoker Alcohol intake: never Substance use: former Substance use type: marijuana Other substance usage d
[2022-03-26] MEDS: ACETAMINOPHEN 325 MG TABLET 650 MG PO (08:45)
[2022-03-26] MEDS: CHOLECALCIFEROL 1,000 UNITS TABLET 1000 UNITS PO (08:47)
[2022-03-26] MEDS: lisinopriL 20 MG TABLET PO (08:47)
[2022-03-26] MEDS: ASPIRIN 81 MG CHEWABLE TABLET PO (08:47)
[2022-03-26] MEDS: ROSUVASTATIN 10 MG TABLET 20 MG PO (08:47)
--- NOTE | 2022-03-26 09:25 | P.PCNCC_ITS ---
Cardiac Cath Procedure Note Date of procedure:: 03/26/22 Performing physician:: Carlos Bunn MD Indication:: Chest pain felt to be atypical of angina abnormal nuclear stress test Brief clinical history:: this is a 51-year-old woman with obesity and diabetes who entered the hospital with chest pain incident that was felt clinically to be atypical of angina. Electrocardiogram and biomarkers showed no evidence of acute coronary syndrome. Lexiscan nuclear stress test performed yesterday is interpreted as showing evidence of anterior ischemia. Procedure Procedure performed:: Left ventriculogram coronary angiogram Angio-Seal to right femoral artery Sedation/Medication given:: fentanyl 100 mg Versed 2 mg case start time 9:06 a.m. case end 922 a.m. Access site:: right femoral artery Estimated blood loss:: 25 cc Procedure note:: patient was brought to the cardiac catheterization lab in the postabsorptive state where the right femoral triangle was prepared and draped in the normal fashion. Anesthesia was 1% lidocaine infiltrated locally. Using the modified Seldinger technique the right femoral artery was punctured and a 5 Maldivian vascular sheath was placed. After this left heart catheterization was carried out. I used a 5 Maldivian angled pigtail catheter to measure left-sided hemodynamics and to inject LV g in the are AO projection. Following this the left coronary artery was engaged and injected using a 5 Maldivian FL4 catheter the right coronary artery was engaged and injected using a 5 Maldivian JR4 catheter. The procedure was well tolerated and uncomplicated the after review of the cineangiograms an angiogram was done of the femoral artery through the sheath and Angio-Seal device was deployed with a good hemostatic result. There were no signs of any procedural complications. 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 Findings:: Hemodynamics: Central aortic pressure is 152 over 76 left ventricle 152/0 end-diastolic pressure 16 there is no gradient on pullback across the aortic valve. Left ventricle: The LV is normal in size all segments contract appropriately the global ejection fraction of visually estimated to be 60%. The left main coronary artery is nicely patent the left anterior descending is a moderate to large caliber artery smooth angiographically normal. There are no atherosclerotic lesions in the LAD or its branches. The LAD continues around the apex and provides a significant amount of perfusion to the inferior wall as well. The circumflex is a moderate caliber artery giving rise to the marginal branches and posterior branches. The circumflex is dominant to the posterior circulation and is angiographically normal. The right coronary artery is moderate caliber and non dominant. Angiographically it is free of disease. Conclusion:: 1. Left coronary dominant circulation with no evidence of coronary disease 2. normal left ventricular systolic function 3. false-positive stress test Carlos Bunn MD [facility]
[2022-03-26 10:38] LABS: Glucose Point of Care 91 mg/dl (65-105)
[2022-03-26] MEDS: SODIUM CHLORIDE 0.9% IV 1,000 ML 125 ML IV CONT (10:45)
[2022-03-26 11:45] LABS: Glucose Point of Care 96 mg/dl (65-105)
--- NOTE | 2022-03-26 14:15 | PM.DS ---
DS: Admitting Diagnosis Discharge Date 03/26/22 Admitting Diagnosis Chest pain DS: Discharge Diagnosis Discharge Diagnosis (1) Chest pain: Qualifiers: Chest pain type: unspecified Qualified Code(s): R07.9 - Chest pain, unspecified Code(s): R07.9 - Chest pain, unspecified Status: Acute Assessment and Plan: Patient presents with chest pain. Trop negative x 3. EKG showing NSR, left axis and possible old septal [place]. Echo showing EF 60-65% and diastolic dysfunction. Cardiology was consulted. Lexiscan stress test showing normal EKG findings but nuclear images showing small region of mild reversible ischemia at the anteroapical portion of the immediately adjacent apical septal segments. Leftt heart cath was angiographically free of disease. The Lexiscan was a false positive test. (2) Neurological symptoms: Code(s): R29.90 - Unspecified symptoms and signs involving the nervous system Status: Acute Assessment and Plan: She reports transient symptoms with the chest pain. No dysrhythmias on telemetry. Echo as mentioned above. Carotid ultrasound showing <50% stenosis bilaterally. Brain MRI showing no acute process. We continue ASA, statin. She was complaining of right-sided neck pain with movement but this has been improving since admission. Exam were consistent with muscle skeletal pain. She was advised to return to the emergency room or talk to her primary care doctor if pain persists or if she has symptoms such as numbness, tingling or weakness in her extremities. She voiced understanding this (3) Type 2 diabetes mellitus: Code(s): E11.9 - Type 2 diabetes mellitus without complications Status: Acute Assessment and Plan: A1c 13.4. Glucose was elevated at times. She was monitored with AccuCheks covering with sliding scale. Hypoglycemia protocol was available as needed. (4) Hypertension: Code(s): I10 - Essential (primary) hypertension Status: Acute Assessment and Plan: Blood pressure is 177/90 on admission but since that time has been well controlled. We resumed her lisinopril. (5) Dyslipidemia: Code(s): E78.5 - Hyperlipidemia, unspecified Status: Acute Assessment and Plan: LFTs are normal. We continued her rosuvastatin (6) Hypothyroidism: Code(s): E03.9 - Hypothyroidism, unspecified Status: Acute Assessment and Plan: TSH normal. Patient states that she does take Synthroid at home. This did not make her med list. Encouraged her to continue taking this medication. DS: Summary Hospital Course Reason for hospitalization: 51yo female with DM, HTN and HLD here for chest pain and slurred speech. Please see H&P for details Hospital Course: Please see above for details of hospital course. Status at Discharge Cognitive/behavioral status at discharge: Stable Time Spent with Patient Time attestation: Total time spent providing and/or coordinating discharge services: 35 minutes Time spent: Greater than 30 minutes Exam Narrative: AF 98.6 128/71 71 18 96% ra Gen - NARD sitting at the side of the bed neck - normal neck ROM, minimal right upper pericervical pain to palpation Chest - CTA bilaterally, nml RR CV - RRR S1/S2, Tele showing no significant dysrhythmias Abd - soft, NT/ND, +BS Ext - no pedal edema. right groin dressing clean and dry Neuro - nml strength in the UE. Nml sensation in the UE Psych - nnl mood and affect Skin - warm and dry DS: Data Data Completed and Pending Labs on day of discharge: Labs from last 24 hours 03/26/22 03/26/22 03/26/22 11:37 10:32 07:36 POC Capillary Glucose 96 91 100 03/25/22 03/25/22 20:25 16:10 POC Capillary Glucose 192 H 232 H Discharge Plan Discharge Attending physician on discharge: Andrew Britton Consulting providers: Carl Quinteros ; Carlos Dsouza Discharging Clinician: Inder Britton
== END 2022-03-26 16:04 | disposition home or self-care (01) ==
LOC: ANHED 10:31 → ANHIMU 13:03
PROVIDERS: Internal Medicine Cardiovascular Disease; Physician Assistant; Specialist; Admitting Provider Hospitalist; Emergency Provider Emergency Medicine; Visit Provider Internal Medicine
PROC: 4A023N7 Measurement of Cardiac Sampling and Pressure, Left Heart, Percutaneous Approach (ICD-10-PCS; CPT 93452; principal; 2022-03-26 09:00)
DX: R07.9 Chest pain, unspecified (principal); I10 Essential (primary) hypertension; I65.23 Occlusion and stenosis of bilateral carotid arteries; E11.9 Type 2 diabetes mellitus without complications; J45.909 Unspecified asthma, uncomplicated; E78.5 Hyperlipidemia, unspecified; E78.00 Pure hypercholesterolemia, unspecified; E03.9 Hypothyroidism, unspecified; M54.2 Cervicalgia; Z79.4 Long term (current) use of insulin
CPT/HCPCS: 36415; 70551; 71046; 78452; 80048; 80053; 82948; 83036; 83690; 83735; 84443; 84484; 85025; 85027; 85610; 85730; 93005; 93017; 93306; 93458; 93880; 96360; 96361; 96372; 96374; 96375; 99285; A9270; A9502; C1760; C1887; C1894; G0269; G0378; J1644; J1650; J1815; J2250; J2270; J2405; J2785; J3010; J7030; J7040

== ENCOUNTER 2023-04-08 02:02 | Day surgery (SDC) | payer OTHER, SELFPAY ==
[2023-03-25 12:10] VITALS: BMI 34.4
[2023-04-08 08:20] VITALS: BP 138/85; PULSE 76; RESP 16; TEMP 36.8; O2SAT 99; BMI 36.6
--- NOTE | 2023-04-08 08:31 | SUR.PREOP ---
Blood glucose per Dexcom is 118. Dr. Stephens aware blood glucose is per Dexcom.
[2023-04-08] MEDS: LACTATED RINGERS 1,000 ML 150 ML IV CONT (08:35)
--- NOTE | 2023-04-08 08:40 | WPDHPUPDATE1 ---
History and Physical Update Update Date/Time: 04/08/23 08:40 Patient presents for colonoscopy. She has chronic intermittent diarrhea. Occasionally at night sometimes with poor control. Patient has diabetes with peripheral neuropathy. I suspect patient has diabetic diarrhea. Colonoscopy will be performed today if unremarkable suggest patient add fiber as a bulk agent. Strict control of blood glucose would also help. History and Physical has been reviewed, including an updated exam of the patient. There are NO changes in the patient's condition. Risks, benefits, and alternatives have been discussed and questions answered. Patient agrees to proceed with procedure.
--- NOTE | 2023-04-08 08:52 | WPDANESEPPF ---
Anes - Initial Pre Proc Eval Procedure: Operation Date: 04/08/23 09:30 Proposed Procedures p Colonoscopy - Sampson Sahni MD Date/Time: 04/08/23 08:52 Surgeon: Sampson Sahni MD Pre Op Diagnosis: diarrhea, Abdominal pain Patient Data Age: 52 Gender: F Height: 1.63 m Weight: 96.9 kg Last Vital Signs Temp 98.2 F 04/08/23 08:20 Pulse 76 04/08/23 08:20 Resp 16 04/08/23 08:20 BP 138/85 04/08/23 08:20 Pulse Ox 99 04/08/23 08:20 O2 Del Method Room Air 04/08/23 08:20 Allergies Allergy/AdvReac Type Severity Reaction Status Date / Time No Known Allergies Allergy Unknown Verified 04/08/23 08:16 Home Medications Medication Instructions Recorded Confirmed Type cholecalciferol (vitamin D3) 25 25 mcg PO DAILY 03/24/22 03/25/23 History mcg (1,000 unit) capsule (Vitamin D3) rosuvastatin 20 mg tablet 20 mg PO QAM 03/24/22 03/25/23 History exenatide microspheres 2 mg/0.85 2 mg subcut WEEKLY 03/03/23 03/25/23 History mL subcutaneous auto-injector (Bydureon BCise) glimepiride 2 mg tablet 2 mg PO QAM 03/03/23 03/25/23 History insulin glargine-yfgn 100 unit/mL 20 unit subcut BID 03/03/23 03/25/23 History (3 mL) subcutaneous pen (Semglee (insulin glargine-yfgn) Pen) levothyroxine 50 mcg capsule 50 mcg PO DAILY 03/03/23 03/25/23 History lisinopril 20 mg tablet 20 mg PO DAILY 03/03/23 03/25/23 History pioglitazone 30 mg tablet 30 mg PO DAILY 03/03/23 03/25/23 History dicyclomine 20 mg tablet See Rx Instructions .Route 04/04/23 04/08/23 Rx .COMPLEX #120 tabs Patient hx anesthesia problems: none Family hx anesthesia problems: none Results Review: All pre-operative results and documents have been reviewed as part of the pre-operative evaluation. [facility] Past Medical History Medical History (Updated 04/13/23 @ 15:47 by Paige Naik APRN) Asthma Depression Fecal incontinence Gas bloat syndrome Hypercholesterolemia Hypertension Hypothyroidism Irritable bowel syndrome with diarrhea Methicillin resistant Staphylococcus aureus infection (2007) Type 2 diabetes mellitus Surgical History Surgical History History of 2 sections History of arthroscopy of left knee History of bilateral cataract extraction History of cholecystectomy History of shoulder surgery History of tubal ligation Family History Family History Mother Chronic obstructive pulmonary disease Grandparent Diabetes mellitus Cerebrovascular accident Emphysema lung Sibling Diabetes mellitus Social History Social History Social History: Surrogate decision maker: Damon Younger, karin. Code status: Full code. Smoking status: Never smoker Alcohol intake: current Substance use: never Substance use type: does not use Other substance usage details: Edibles Living arrangements: alone Additional living arrangements comments: The patient lives in [place] with I believe 4 children. 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 Spiritual care concerns: No Anes - Eval Final PreProcedure Day of Procedure 04/08/23 08:52 Patient weight: obese Heart: regular rate and rhythm Lungs: clear to auscultation Airway: Mallampati scale Neurological: alert and oriented Last oral intake: >/= 8 hours ASA classification: III Emergent: no Anesthetic plan: proceed Anesthesia type and monitoring: general GIVS and standard monitoring Results Review: All pre-operative results and documents have been reviewed as part of the pre-operative evaluation. Informed Consent: The patient's anesthetic plan and its attendant risks and benefits were discussed with the patient/family/POA. Questions were solicited and answers provided to the satisfaction of the patient/family/POA.
[2023-04-08 10:11] VITALS: BP 124/68; PULSE 72; RESP 20; O2SAT 99
[2023-04-08 10:21] VITALS: BP 122/79; PULSE 74; RESP 20; O2SAT 98
[2023-04-08 10:31] VITALS: BP 142/84; PULSE 72; RESP 18; O2SAT 100
[2023-04-08 10:34] LABS: Glucose Point of Care 99 mg/dl (65-105)
== END 2023-04-08 10:42 | disposition home or self-care (01) ==
PROVIDERS: Visit Provider Internal Medicine Gastroenterology
PROC: 0DJD8ZZ Inspection of Lower Intestinal Tract, Via Natural or Artificial Opening Endoscopic (ICD-10-PCS; CPT 45378; principal; 2023-04-08 09:30)
DX: K58.0 Irritable bowel syndrome with diarrhea (principal); I10 Essential (primary) hypertension; R15.9 Full incontinence of feces; J45.909 Unspecified asthma, uncomplicated; E78.00 Pure hypercholesterolemia, unspecified; E03.9 Hypothyroidism, unspecified; E11.9 Type 2 diabetes mellitus without complications; F32.A Depression, unspecified
CPT/HCPCS: 45380; 82948; 88305; J2704; J7120

== ENCOUNTER 2025-10-29 09:18 | Emergency (ER) | payer OTHER, MEDICAID, SELFPAY ==
[2025-10-29] VITALS (7 sets, daily range): BP systolic 124–168; BP diastolic 71–92; PULSE 72–80; RESP 10–18; TEMP 36.6; O2SAT 96–100
--- NOTE | ~2025-10-29 | XR_ITS ---
EXAMINATION: XR chest 2V DATE: 10/29/2025 10:17 INDICATION: Weakness TECHNIQUE: Frontal and lateral views of the chest were obtained. COMPARISON: March 24, 2022 FINDINGS: The lungs are clear. Heart size normal. Bones appear intact. IMPRESSION: 1. No focal acute process. Reviewed, dictated and finalized at location A. D SOFTWARE ENGINEER IMPRESSION: 1. No focal acute process.
--- NOTE | 2025-10-29 09:29 | ECG_ITS ---
Test Date: 2025-10-29 09:33:38 Measurements Intervals [place] Rate: 72 P: 55 ND: 201 QRS: -42 QRSD: 92 T: 39 QT: 387 QTc: 426 Interpretive Statements SINUS RHYTHM LEFT AXIS DEVIATION POOR R WAVE PROGRESSION BORDERLINE ECG No previous ECG available for comparison Electronically Signed On 10-29-2025 10:24:24 [facility]MI[facility] by Carl Quinteros D.O.
--- NOTE | 2025-10-29 09:37 | ED.WEAKNESS ---
HPI - Weakness General Chief complaint: Weakness Stated complaint: weakness, extremity tingling Time Seen by Provider: 10/29/25 09:34 History of Present Illness HPI Narrative: 55-year-old female presents emergency department complaining of generalized fatigue for less than 24 hours. Patient states that she was at work? her legs and arms felt heavy?. Patient states she has been sleeping that well. She denies any infectious symptoms she denies any fevers chills cough shortness of breath chest pain nausea vomiting urinary symptoms. Denies any headache. Patient states that she has been here she starts to feel better. Related Data Home Medications ?Medication ?Instructions ?Recorded ?Confirmed ?Last Taken ?Type escitalopram oxalate 10 mg tablet 20 mg PO DAILY 01/29/25 10/03/25 Unknown History (Lexapro) irbesartan 150 mg tablet 150 mg PO DAILY 10/03/25 10/03/25 Unknown History Allergies Allergy/AdvReac Type Severity Reaction Status Date / Time semaglutide (From Ozempic) Allergy Mild Other Verified 10/29/25 09:35 Review of Systems Review of Systems: All systems reviewed & are unremarkable except as noted in HPI and below PMFSH Past Medical History Medical History Gas bloat syndrome Fecal incontinence Irritable bowel syndrome with diarrhea Methicillin resistant Staphylococcus aureus infection (2007) Depression Type 2 diabetes mellitus Hypothyroidism Asthma Hypercholesterolemia Hypertension Surgical History Surgical History History of bilateral cataract extraction History of shoulder surgery History of arthroscopy of left knee History of cholecystectomy History of tubal ligation History of 2 sections Family History Family History Mother Chronic obstructive pulmonary disease Grandparent Diabetes mellitus Cerebrovascular accident Emphysema lung Sibling Diabetes mellitus Social History Social History Social History: Surrogate decision maker: Damon Younger, son. Code status: Full code. Smoking status: Never smoker Alcohol intake: current Substance use: never Substance use type: does not use Other substance usage details: Edibles Lack of Transportation: No Lack of Food: Often True Current Housing: I Have Housing Concerned About Future Housing: No Difficulty Paying Gas/Electric Bills: No Difficulty Paying for Meds: No Currently Unemployed: No Education: Trade/Vocational Certificate Difficulty w/ Childcare or Family Care: No Living arrangements: alone Additional living arrangements comments: The patient lives in [place] with I believe 4 children. 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 Spiritual care concerns: No Exam Narrative: EXAMINATION OF ORGAN SYSTEMS/BODY AREAS: Constitutional: Vital signs per nursing GENERAL:No acute distress, non-toxic appearing. HEAD: Normal with no signs of head trauma. EYES: EOMI, conjunctiva normal ENT: Hearing grossly intact LUNGS: Nonlabored breathing. HEART: Regular rate and rhythm ABD: Soft, nontender to palpation EXT: Normal range of motion SKIN: No rashes or lesions. NEURO: Alert. No gross focal sensory or strength deficits. PSYCH: Normal affect Course Vital Signs Vital signs: Vital Signs Temperature 36.6 C 10/29/25 09:19 Pulse Rate 72 10/29/25 09:19 Respiratory Rate 10 L 10/29/25 09:19 Blood Pressure 156/71 H 10/29/25 09:19 Pulse Oximetry 100 10/29/25 09:19 Temperature 36.6 C 10/29/25 09:19 Pulse Rate 73 10/29/25 11:05 Respiratory Rate 16 10/29/25 11:05 Blood Pressure 145/82 H 10/29/25 11:05 Pulse Oximetry 100 10/29/25 11:05 [facility] Differential Diagnosis Differential Diagnosis: Differential is electrolyte abnormality acute renal failure versus infectious process versus atypical presentation of ACS. Will obtain EKG cardiac workup basic labs through laceration here in the emergency department plan for evaluation for 3 minutes. Results and re-evaluation Patient feels improved. Lab reviewed except limits. EKG without arrhythmia or ischemia. Return precautions discussed understanding verbalized discharged stable condition. Lab Data [facility] Lab Attestation statement: I personally reviewed the patient's lab results. 10/29/25 09:40 10/29/25 09:40 Labs: Lab Results 10/29/25 Range/Units 09:40 WBC 6.6 (4.5-10.0) K/mm3 RBC 4.16 L (4.2-5.4) M/mm3 Hgb 11.6 L (12.0-15.0) g/dL Hct 36.7 L (37.0-47.0) % MCV 88.2 (80-100) fl MCH 27.9 (26-34) pg MCHC 31.6 L (32-36) g/dl RDW 13.2 (11.5-14.5) % Plt Count 248 (150-375) k/mm3 MPV 9.3 (7.4-10.4) fl Immature Gran % (Auto) 0.2 (0-0.5) % Neut % (Auto) 60.8 (45.5-73.1) % Lymph % (Auto) 28.7 (18.3-44.2) % [place] % (Auto) 5.3 (2.6-8.5) % Eos % (Auto) 4.1 (0-4.4) % Baso % (Auto) 0.9 (0.2-1.2) % Lymph # (Auto) 1.89 (0.9-3.2) K/mm3 [place] # (Auto) 0.4 (0.1-0.6) K/mm3 Eos # (Auto) 0.3 (0-0.3) K/mm3 Baso # (Auto) 0.1 (0.0-0.1) K/mm3 Abs Immat Gran (auto) 0.01 (0.00-0.031) K/mm3 Absolute Neuts (auto) 4.0 (1.3-6.7) K/mm3 Absolute Nucleated RBC 0.000 (0.0-0.012) K/mm3 Nucleated RBC % 0.0 (0.0-0.2) % Sodium 138 (137-145) mmol/L Potassium 4.1 (3.4-5.0) mmol/L Chloride 107 (98-107) mmol/L Carbon Dioxide 27 (22-30) mmol/L Anion Gap 4 (4-12) mmol/L BUN 19 H (7-17) mg/dL Creatinine 0.93 (0.7-1.0) mg/dL Estim Creat Clear Calc 71 ml/min Estimated GFR > 60 (59 - ) Glucose 126 H (65-110) mg/dL Calcium 8.8 (8.4-10.2) mg/dL Total Bilirubin 0.4 (0.2-1.3) mg/dL AST 23 (14-36) U/L ALT 30 (6-35) U/L Alkaline Phosphatase 95 (38-126) U/L Total Protein 7.8 (6.3-8.2) g/dL Albumin 4.2 (3.5-5.1) g/dL Imaging Data Attestation: I personally reviewed and interpreted this imaging study as follows: My impression: Chest x-ray shows normal cardiac silhouette no focal infiltrate or pneumothorax. Overall impression normal chest xr. Radiologist's impression: ITS Impressions Chest X-Ray 10/29/25 10:19 IMPRESSION: 1. No focal acute process. ECG Data EKG #1: Interpretation: Twelve lead EKG shows normal sinus rhythm at a rate of 72 beats per minute. Borderline left axis deviation. Otherwise no evidence of ST segment elevation or depression. Normal intervals. Overall impression abnormal EKG per Discharge Plan Discharge Clinical Impression: Weakness Patient Disposition: Home Condition: Stable Instructions: Antibiotic Form Additional Instructions: As we discussed please follow-up with your primary care doctor in 2-3 days for re-evaluation return sooner for any new or concerning symptoms. I hope you feel better. Patient Language: Romansh Prescriptions: No Action escitalopram oxalate [Lexapro] 10 mg tablet 20 mg PO DAILY Baqsimi 3 mg/actuation spray,non-aerosol 3 mg intranasal ONCE Qty: 2 0RF Rx Instructions: as a single dose irbesartan 150 mg tablet 150 mg PO DAILY dapagliflozin propanediol [Farxiga] 10 mg tablet 10 mg PO DAILY Qty: 90 2RF liraglutide [Victoza 2-Kwame] 0.6 mg/0.1 mL (18 mg/3 mL) pen injector See Rx Instructions subcut .COMPLEX Qty: 9 2RF Rx Instructions: inject 0.6mg subcutaneously once daily x 7 days; then 1.2mg daily, not to exceed 1.8mg/day subcut rosuvastatin 20 mg tablet See Rx Instructions .ROUTE .COMPLEX Qty: 90 0RF Dose Instruction: TAKE 1 TABLET BY MOUTH EVERY DAY IN THE MORNING Rx Instructions: TAKE 1 TABLET BY MOUTH EVERY DAY IN THE MORNING (DME) Dexcom G7 Sensor Device See Rx Instructions .ROUTE .COMPLEX Qty: 9 12RF Dose Instruction: USE EVERY 10 DAYS Rx Instructions: USE EVERY 10 DAYS levothyroxine [Levo-T] 112 mcg tablet 112 mcg PO DAILY Qty: 90 2RF Follow-up/Referrals: UNKNOWN,DOCTOR [Primary Care Provider] Stand Alone Forms: Work/School Release IP Time of Disposition: 10:47
[2025-10-29 09:47] LABS: Hematocrit 36.7 % (37.0-47.0); Hemoglobin 11.6 g/dL (12.0-15.0); Immature Granulocyte Percent A 0.2 % (0-0.5); Lymphocytes Absolute Auto 1.89 K/mm3 (0.9-3.2); Mean Corpuscular HGB Conc 31.6 g/dl (32-36); Mean Corpuscular Hemoglobin 27.9 pg (26-34); Mean Corpuscular Volume 88.2 fl (80-100); Nucleated Red Blood Cells Absolute Auto 0.000 K/mm3 (0.0-0.012); Nucleated Red Blood Cells Perc 0.0 % (0.0-0.2); Platelet Count Result 248 k/mm3 (150-375); Red Blood Count 4.16 M/mm3 (4.2-5.4); White Blood Count 6.6 K/mm3 (4.5-10.0)
[2025-10-29 09:57] LABS: Alanine Aminotransferase 30 U/L (6-35); Albumin Level 4.2 g/dL (3.5-5.1); Alkaline Phosphatase 95 U/L (38-126); Anion Gap 4 mmol/L (4-12); Aspartate Amino Transferase 23 U/L (14-36); Bilirubin,Total 0.4 mg/dL (0.2-1.3); Blood Urea Nitrogen 19 mg/dL (7-17); Calcium 8.8 mg/dL (8.4-10.2); Carbon Dioxide 27 mmol/L (22-30); Chloride 107 mmol/L (98-107); Estimated CRCL calculation 71 ml/min; Estimated Glomerular Filt Rate > 60; Glucose 126 mg/dL (65-110); Potassium 4.1 mmol/L (3.4-5.0); Sodium 138 mmol/L (137-145); Total Protein 7.8 g/dL (6.3-8.2)
== END 2025-10-29 11:05 | disposition home or self-care (01) ==
LOC: ANHED 10:57
PROVIDERS: Emergency Provider Emergency Medicine
DX: R53.1 Weakness (principal); I10 Essential (primary) hypertension; E11.9 Type 2 diabetes mellitus without complications; E03.9 Hypothyroidism, unspecified; E78.00 Pure hypercholesterolemia, unspecified; J45.909 Unspecified asthma, uncomplicated; K58.0 Irritable bowel syndrome with diarrhea; F32.A Depression, unspecified; Z86.14 Personal history of Methicillin resistant Staphylococcus aureus infection; Z98.42 Cataract extraction status, left eye; Z98.41 Cataract extraction status, right eye; Z90.49 Acquired absence of other specified parts of digestive tract; Z79.85 Long-term (current) use of injectable non-insulin antidiabetic drugs; Z79.899 Other long term (current) drug therapy; R94.31 Abnormal electrocardiogram [ECG] [EKG]
CPT/HCPCS: 36415; 71046; 80053; 85025; 93005; 99283